=== PATIENT | male | born 1980 ===

== ENCOUNTER 2017-12-13 15:28 | Observation (INO) | payer OTHER ==
[2017-12-13 16:25] LABS: BASO % 0.9 % (0.0-2.0); EOS # 0.1 K/uL (0.0-0.7); EOS % 3.5 % (0.0-4.0); HEMOGLOBIN 13.1 g/dL (12.0-18.0); LYMPH # 0.9 K/uL (1.0-4.3); LYMPH % 20.8 % (20.0-40.0); MEAN CELL VOLUME 95.3 fL (80.0-94.0); MEAN CORPUSCULAR HEMOGLOBIN 31.3 pg (27.0-31.0); MEAN CORPUSCULAR HGB CONC 32.8 g/dL (33.0-37.0); MEAN PLATELET VOLUME 9.6 fL (7.2-11.7); MONO # 0.3 K/uL (0.0-0.8); MONO % 7.1 % (0.0-10.0); NEUT # 2.8 K/uL (1.8-7.0); NEUT % 67.7 % (50.0-75.0); RBC 4.18 Mil/uL (4.40-5.90); RED CELL DISTRIBUTION WIDTH 14.3 % (11.5-14.5); WHITE BLOOD COUNT 4.2 K/uL (4.8-10.8)
[2017-12-13 16:44] LABS: INR 1.1; PROTHROMBIN TIME 12.4 SECONDS (9.7-12.2)
--- NOTE | 2017-12-13 16:45 | C.PDOC ---
History Of Present Illness 37 y/o male, w/PMhx of renal failure, presents to the ER complaining of SOB and lethargy. Patient states that he has dialysis on Tuesdays and Fridays in [facility]. Patient reports that [place], he us [place] 1[place]2 weeks. Denies having CP, fever, chills, nausea, and vomiting. Time Seen by Provider: 12/13/17 15:55 Chief Complaint (Nursing): Shortness Of Breath History Per: Patient History/Exam Limitations: no limitations Onset/Duration Of Symptoms: Days Current Symptoms Are (Timing): Still Present Severity: Moderate Past Medical History Reviewed: Historical Data, Nursing Documentation, Vital Signs Vital Signs: Last Vital Signs Temp 97.2 F L 12/13/17 15:45 Pulse 51 L 12/13/17 16:10 Resp 16 12/13/17 16:10 BP 127/74 12/13/17 16:10 Pulse Ox 99 12/13/17 16:10 - Medical History PMH: HTN - Social History Hx Alcohol Use: No Hx Substance Use: No - Immunization History Hx Tetanus Toxoid Vaccination: No Hx Influenza Vaccination: No Hx Pneumococcal Vaccination: No Review Of Systems Except As Marked, All Systems Reviewed And Found Negative. Constitutional: Positive for: Other (lethargy). Negative for: Fever, Chills Cardiovascular: Negative for: Chest Pain Respiratory: Positive for: Shortness of Breath Gastrointestinal: Negative for: Nausea, Vomiting Physical Exam - Physical Exam Appears: Chronically Ill, Other Skin: Warm, Dry, Other (pallid) Head: Atraumatic, Normacephalic Eye(s): bilateral: Normal Inspection Nose: Normal Oral Mucosa: Moist Neck: Supple, Other (no JVD) Chest: Symmetrical Cardiovascular: Rhythm Regular Respiratory: Normal Breath Sounds, No Rales, No Rhonchi, No Wheezing Gastrointestinal/Abdominal: Normal Exam, Soft, No Tenderness, No Guarding, No Rebound Extremity: Normal ROM, Other (AV Fistula to left arm, no pitting edema) Neurological/Psych: Oriented x3, Normal Speech ED Course And Treatment - Laboratory Results Result Diagrams: 12/13/17 16:22 12/13/17 16:22 Lab Interpretation: Abnormal (c/w ESRD on HD, requiring HD) ECG: Interpreted By Me, Viewed By Me ECG Rhythm: Sinus Bradycardia ECG Interpretation: Abnormal (+ peaked T^'s) Interpretation Of ECG: Sinus Bradycardia with peaked T waves Rate From EC O2 Sat by Pulse Oximetry: 99 (RA) Pulse Ox Interpretation: Normal - Radiology CXR: Interpreted by Me CXR Interpretation: Yes: No Acute Disease Reevaluation Time: 17:12 Reassessment Condition: Unchanged - Physician Consult Information Outcome Of Conversation: and 1709: d/w Dr. 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 1709: d/w Dr. Ingram- Hospitalist covering Self Pay pt's today, ok to admit. Medical Decision Making Medical Decision Making: Plan: --Labs --ECG --CXR 1714: ESRD on HD, usually T/Tue, visiting from [facility] until 12/19, requires STAT HD today for elev K+ 7.5 and peaked T^'s on EKG, lethargy Defer agressive potassium "lowering" treatments in ED as best tx will be STAT HD and pt stable for a few hrs, myocardium temporally stabilized by Calcium Gluconate tx only. Disposition Doctor Will See Patient In The: Hospital Counseled Patient/Family Regarding: Studies Performed, Diagnosis - Disposition Disposition: HOSPITALIZED Disposition Time: 17:15 Condition: GOOD Forms: [employer] (Kyrgyz) - Clinical Impression Clinical Impression: ESRD (end stage renal disease) on dialysis, Chronic hyperkalemia - Scribe Statement The provider has reviewed the documentation as recorded by the Maddison Tejada Provider Attestation: All medical record entries made by the Maddison were at my direction and p ersonally dictated by me. I have reviewed the chart and agree that the record accurately reflects my personal performance of the history, physical exam, medical decision making, and the department course for this patient. I have also personally directed, reviewed, and agree with the discharge instructions and disposition.
[2017-12-13 16:48] LABS: B-TYPE NATRIURETIC PEPTIDE 23400 pg/mL (0-450)
[2017-12-13 16:58] LABS: ALB/GLOB RATIO 1.8 (1.0-2.1); ALBUMIN 4.7 g/dL (3.5-5.0); ALT/SGPT 30 U/L (21-72); AST/SGOT 16 U/L (17-59); BLOOD UREA NITROGEN 100 mg/dL (9-20); CALCIUM 6.4 mg/dl (8.6-10.4); GFR NON-AFRICAN AMERICAN 3
[2017-12-13] MEDS ORDERED: Calcium Gluconate 4.65 MEQ in Dextrose 5% In Water 100 ML IV ONE (17:06)
[2017-12-13] MEDS ORDERED: Calcium Gluconate 4.65 mEq/10 ml Inj ONE (17:22)
--- NOTE | 2017-12-13 17:37 | RAD ---
HISTORY: SOB COMPARISON: None available. TECHNIQUE: Chest PA and lateral FINDINGS: LUNGS: Mild pulmonary venous congestion. No focal consolidation. Please note that chest x-ray has limited sensitivity for the detection of pulmonary masses. PLEURA: No significant pleural effusion identified. No definite pneumothorax . CARDIOVASCULAR: Marked cardiomegaly with CTR approximately 19.6/30 atherosclerotic calcifications of the aortic knob. OSSEOUS STRUCTURES: No acute osseous abnormality identified. VISUALIZED UPPER ABDOMEN: Unremarkable. OTHER FINDINGS: None. IMPRESSION: Marked cardiomegaly, unusual in a patient of this age. Recommend correlation with EKG/echocardiogram if warranted as well as production supervisor off shift consultation. Faint atherosclerotic calcification of the aortic knob. Mild pulmonary venous congestion.
[2017-12-13 20:51] LABS: BLOOD UREA NITROGEN 79 mg/dL (9-20); CALCIUM 6.7 mg/dl (8.6-10.4); GFR NON-AFRICAN AMERICAN 5
--- NOTE | 2017-12-13 20:56 | CP.PCM.HP ---
History of Present Illness - History of Present Illness History of Present Illness: 37 year old male w/ pmhx of ESRD 2/2 HTN presents to ED w/ complaints of weakness, fatigue, and nausea for several days. Pt attributes this to his having missed his dialysis scheduled for today. Pt is here visiting from [facility] and planned to miss one of his t/f sessions as he has done before, but became symptomatic this time. Pt was diagnosed w/ ESRD resulting from uncontrolled HTN approx 10 yrs ago. Pt denies chest pain, SOB, vomiting, diarrhea. PMHx: ESRD, HTN PSHx: AVF, Meds:amlodipine, losartan, terazosin Allergies: NKDA SOcHx: denies Present on Admission - Present on Admission Any Indicators Present on Admission: No Review of Systems - Constitutional Constitutional: Fatigue, Weakness - EENT Eyes: absent: Change in Vision Nose/Mouth/Throat: absent: Nasal Congestion - Cardiovascular Cardiovascular: absent: Chest Pain, Dyspnea, Palpitations - Respiratory Respiratory: absent: Chest Congestion - Gastrointestinal Gastrointestinal: Nausea. absent: Abdominal Pain Past Patient History - Past Social History Smoking Status: Never Smoked - CARDIAC Hx Hypertension: Yes - RENAL Hx Renal Failure: Yes - PSYCHIATRIC Hx Substance Use: No - SURGICAL HISTORY Other/Comment: Peritoneal catheter - ANESTHESIA Hx Anesthesia: No Meds Allergies/Adverse Reactions: Allergies Allergy/AdvReac Type Severity Reaction Status Date / Time No Known Allergies Allergy Verified 12/13/17 15:50 Physical Exam - Constitutional Appears: Non-toxic, No Acute Distress - Head Exam Head Exam: ATRAUMATIC, NORMAL INSPECTION, NORMOCEPHALIC - Eye Exam Eye Exam: EOMI, Normal appearance - ENT Exam ENT Exam: Mucous Membranes Moist, Normal Exam - Neck Exam Neck exam: Positive for: Normal Inspection - Respiratory Exam Respiratory Exam: Clear to Auscultation Bilateral, NORMAL BREATHING PATTERN. absent: Rales - Cardiovascular Exam Cardiovascular Exam: Bradycardia, REGULAR RHYTHM, +S1, +S2 - GI/Abdominal Exam GI & Abdominal Exam: Normal Bowel Sounds, Soft. absent: Tenderness - Extremities Exam Extremities exam: Positive for: normal inspection. Negative for: pedal edema - Neurological Exam Neurological exam: Alert, Oriented x3 - Psychiatric Exam Psychiatric exam: Normal Affect, Normal Mood - Skin Skin Exam: Dry, Intact, Normal Color, Warm Results - Vital Signs Recent Vital Signs: Last Vital Signs Temp 97.5 F L 12/13/17 18:20 Pulse 50 L 12/13/17 18:20 Resp 20 12/13/17 18:20 BP 137/78 12/13/17 18:20 Pulse Ox 97 12/13/17 18:20 - Labs Result Diagrams: 12/13/17 16:22 12/13/17 20:32 Labs: Laboratory Results - last 24 hr 12/13/17 12/13/17 12/13/17 16:22 16:22 16:22 WBC 4.2 L RBC 4.18 L Hgb 13.1 Hct 39.9 MCV 95.3 H MCH 31.3 H MCHC 32.8 L RDW 14.3 Plt Count 134 MPV 9.6 Neut % (Auto) 67.7 Lymph % (Auto) 20.8 [place] % (Auto) 7.1 Eos % (Auto) 3.5 Baso % (Auto) 0.9 Neut # (Auto) 2.8 Lymph # (Auto) 0.9 L [place] # (Auto) 0.3 Eos # (Auto) 0.1 Baso # (Auto) 0.0 PT 12.4 H INR 1.1 APTT 40 H Sodium 142 Potassium 7.5 H* Chloride 103 Carbon Dioxide 14 L Anion Gap 32 H BUN 100 H* Creatinine 17.3 H* Est GFR ( Amer) 4 Est GFR (Non-Af Amer) 3 Random Glucose 101 Calcium 6.4 L Total Bilirubin 0.6 AST 16 L ALT 30 Alkaline Phosphatase 260 H Troponin I < 0.0120 NT-Pro-B Natriuret Pep 93033 H Total Protein 7.3 Albumin 4.7 Globulin 2.6 Albumin/Globulin Ratio 1.8 Assessment & Plan - Assessment and Plan (Free Text) Assessment: 37 yo male w/ ESRD admitted for emergent dialysis Fluid overload requiring emergent dialysis -given tonight -hyperkalemia 7.5, f/u am bmp -renal diet Hyperkalemia -K 7.5 on admission -K s/p HD 6.4 -kayexalate 30mg given -f/u am k HTN -stable, hold home meds at this time. Dispo: d/c when K reponds to kayexalate, pt asymptomatic
[2017-12-13] MEDS ORDERED: Sod Polystyrene Sulf 15 gm/60 ml Susp PO STA (21:04)
[2017-12-13 21:19] LABS: HEPATITIS B SURFACE AG Negative (NEGATIVE)
[2017-12-13 23:00] LABS: CALCIUM 7.2 mg/dl (8.6-10.4)
[2017-12-14 02:37] VITALS: RESP 20
[2017-12-14 08:23] LABS: BASO % 1.1 % (0.0-2.0); EOS # 0.2 K/uL (0.0-0.7); EOS % 5.2 % (0.0-4.0); HEMOGLOBIN 13.7 g/dL (12.0-18.0); LYMPH # 0.8 K/uL (1.0-4.3); LYMPH % 22.2 % (20.0-40.0); MEAN CORPUSCULAR HEMOGLOBIN 30.7 pg (27.0-31.0); MONO # 0.3 K/uL (0.0-0.8); MONO % 6.9 % (0.0-10.0); NEUT # 2.4 K/uL (1.8-7.0); NEUT % 64.6 % (50.0-75.0); RBC 4.44 Mil/uL (4.40-5.90); RED CELL DISTRIBUTION WIDTH 14.7 % (11.5-14.5); WHITE BLOOD COUNT 3.7 K/uL (4.8-10.8)
[2017-12-14 08:30] LABS: MEAN CELL VOLUME 93.3 fL (80.0-94.0)
[2017-12-14 08:58] LABS: CALCIUM 6.3 mg/dl (8.6-10.4)
[2017-12-14] MEDS ORDERED: Sod Polystyrene Sulf 15 gm/60 ml Susp PO ONE (11:30)
--- NOTE | 2017-12-14 13:16 | CARD ---
APPROVED REPORT Date of service: 12/13/2017 EKG Measurement Heart [id number] <Conclusion> Sinus bradycardia with 1st degree AV block Left axis deviation Moderate voltage criteria for LVH, may be normal variant Nonspecific T wave abnormality Prolonged QT Abnormal ECG
--- NOTE | 2017-12-14 13:55 | CP.PCM.CON ---
History of Present Illness - History of Present Illness History of Present Illness: 37 year old male w/ pmhx of ESRD 2/2 HTN presents to ED w/ complaints of weakness, fatigue, and nausea for several days. Pt attributes this to his having missed his dialysis scheduled for today. Pt is here visiting from [facility] and planned to miss one of his t/f sessions as he has done before, but became symptomatic this time. Pt was diagnosed w/ ESRD resulting from uncontrolled HTN approx 10 yrs ago. Pt denies chest pain, SOB, vomiting, diarrhea. PMHx: ESRD, HTN PSHx: AVF, Meds:amlodipine, losartan, terazosin Allergies: NKDA SOcHx: denies s/p emergent dialysis 12/13 for hyperkalemia await placement plans Review of Systems - Review of Systems Systems not reviewed;Unavailable: Language Barrier Past Patient History - Past Medical History & Family History Past Family History: Reviewed and not pertinent - Past Social History Smoking Status: Never Smoked Chewing Tobacco Use: No Cigar Use: No Alcohol: None Drugs: Denies - CARDIAC Hx Hypertension: Yes - RENAL Hx Renal Failure: Yes - PSYCHIATRIC Hx Substance Use: No - SURGICAL HISTORY Other/Comment: Peritoneal catheter - ANESTHESIA Hx Anesthesia: No Meds Allergies/Adverse Reactions: Allergies Allergy/AdvReac Type Severity Reaction Status Date / Time No Known Allergies Allergy Verified 12/13/17 15:50 - Medications Medications: Current Medications Amlodipine Besylate (Norvasc) 10 mg PO DAILY [facility] Last Admin: 12/14/17 10:59 Dose: 10 mg Losartan Potassium (Cozaar) 25 mg PO BID [facility] Last Admin: 12/14/17 10:59 Dose: 25 mg Physical Exam - Constitutional Appears: No Acute Distress, Chronically Ill - Head Exam Head Exam: ATRAUMATIC, NORMAL INSPECTION - Eye Exam Eye Exam: EOMI, Normal appearance - Neck Exam Neck exam: Positive for: Normal Inspection. Negative for: Tenderness - Respiratory Exam Respiratory Exam: Clear to Auscultation Bilateral, NORMAL BREATHING PATTERN - Cardiovascular Exam Cardiovascular Exam: REGULAR RHYTHM, +S1 - GI/Abdominal Exam GI & Abdominal Exam: Soft. absent: Tenderness - Extremities Exam Extremities exam: Positive for: normal inspection. Negative for: tenderness - Neurological Exam Neurological exam: Alert, CN II-XII Intact - Skin Skin Exam: Dry, Warm Results - Vital Signs Recent Vital Signs: Last Vital Signs Temp 98.0 F 12/14/17 07:00 Pulse 66 12/14/17 12:02 Resp 20 12/14/17 07:00 BP 157/94 H 12/14/17 07:00 Pulse Ox 98 12/14/17 12:02 - Labs Result Diagrams: 12/14/17 08:14 12/14/17 08:14 Labs: Laboratory Results - last 24 hr 12/13/17 12/13/17 12/13/17 16:22 16:22 16:22 WBC 4.2 L RBC 4.18 L Hgb 13.1 Hct 39.9 MCV 95.3 H MCH 31.3 H MCHC 32.8 L RDW 14.3 Plt Count 134 MPV 9.6 Neut % (Auto) 67.7 Lymph % (Auto) 20.8 Clark % (Auto) 7.1 Eos % (Auto) 3.5 Baso % (Auto) 0.9 Neut # (Auto) 2.8 Lymph # (Auto) 0.9 L Clark # (Auto) 0.3 Eos # (Auto) 0.1 Baso # (Auto) 0.0 PT 12.4 H INR 1.1 APTT 40 H Sodium 142 Potassium 7.5 H* Chloride 103 Carbon Dioxide 14 L Anion Gap 32 H BUN 100 H* Creatinine 17.3 H* Est GFR ( Amer) 4 Est GFR (Non-Af Amer) 3 Random Glucose 101 Calcium 6.4 L Total Bilirubin 0.6 AST 16 L ALT 30 Alkaline Phosphatase 260 H Troponin I < 0.0120 NT-Pro-B Natriuret Pep 32199 H Total Protein 7.3 Albumin 4.7 Globulin 2.6 Albumin/Globulin Ratio 1.8 Hep Bs Antigen Hep Bs Antibody Hepatitis C Antibody 12/13/17 12/13/17 12/13/17 20:32 20:32 20:32 WBC RBC Hgb Hct MCV MCH MCHC RDW Plt Count MPV Neut % (Auto) Lymph % (Auto) Clark % (Auto) Eos % (Auto) Baso % (Auto) Neut # (Auto) Lymph # (Auto) Clark # (Auto) Eos # (Auto) Baso # (Auto) PT INR APTT Sodium 139 Potassium 6.4 H* Chloride 101 Carbon Dioxide 21 L Anion Gap 24 H BUN 79 H Creatinine 12.6 H* D Est GFR ( Amer) 5 Est GFR (Non-Af Amer) 5 Random Glucose 131 H Calcium 6.7 L Total Bilirubin AST ALT Alkaline Phosphatase Troponin I NT-Pro-B Natriuret Pep Total Protein Albumin Globulin Albumin/Globulin Ratio Hep Bs Antigen Negative Hep Bs Antibody Positive Hepatitis C Antibody Negative 12/13/17 12/14/17 12/14/17 22:43 08:14 08:14 WBC 3.7 L RBC 4.44 Hgb 13.7 Hct 41.5 MCV 93.3 D MCH 30.7 MCHC 33.0 RDW 14.7 H Plt Count 141 MPV 10.0 Neut % (Auto) 64.6 Lymph % (Auto) 22.2 Clark % (Auto) 6.9 Eos % (Auto) 5.2 H Baso % (Auto) 1.1 Neut # (Auto) 2.4 Lymph # (Auto) 0.8 L Clark # (Auto) 0.3 Eos # (Auto) 0.2 Baso # (Auto) 0.0 PT INR APTT Sodium 140 141 Potassium 4.0 5.1 Chloride 97 L 99 Carbon Dioxide 25 22 Anion Gap 23 H 26 H BUN 58 H 71 H Creatinine 10.4 H* 12.7 H* D Est GFR ( Amer) 7 5 Est GFR (Non-Af Amer) 6 4 Random Glucose 85 85 Calcium 7.2 L 6.3 L Total Bilirubin AST ALT Alkaline Phosphatase Troponin I NT-Pro-B Natriuret Pep Total Protein Albumin Globulin Albumin/Globulin Ratio Hep Bs Antigen Hep Bs Antibody Hepatitis C Antibody Assessment & Plan (1) Hyperkalemia Status: Acute (2) Hypertensive chronic kidney disease with stage 5 chronic kidney disease or end stage renal disease Status: Acute (3) ESRD (end stage renal disease) on dialysis Status: Acute - Assessment and Plan (Free Text) Plan: repeat dialysis TTS stop ARB due to hyperkalemia add clonidine will need placement unless going home to country
[2017-12-14 15:51] VITALS: BP 164/84; TEMP 97.9
[2017-12-14 17:02] VITALS: PULSE 70; O2SAT 99
--- NOTE | 2017-12-14 17:41 | CP.PCM.DIS ---
Provider - Provider Date of Admission: 12/13/17 17:08 Attending physician: Ang Ingram MD Time Spent in preparation of Discharge (in minutes): 120 Diagnosis - Discharge Diagnosis (1) ESRD (end stage renal disease) on dialysis Status: Acute (2) Hyperkalemia Status: Acute Hospital Course - Lab Results Lab Results: Most Recent Lab Values WBC 3.7 K/uL (4.8-10.8) L 12/14/17 08:14 RBC 4.44 Mil/uL (4.40-5.90) 12/14/17 08:14 Hgb 13.7 g/dL (12.0-18.0) 12/14/17 08:14 Hct 41.5 % (35.0-51.0) 12/14/17 08:14 MCV 93.3 fL (80.0-94.0) D 12/14/17 08:14 MCH 30.7 pg (27.0-31.0) 12/14/17 08:14 MCHC 33.0 g/dL (33.0-37.0) 12/14/17 08:14 RDW 14.7 % (11.5-14.5) H 12/14/17 08:14 Plt Count 141 K/uL (130-400) 12/14/17 08:14 MPV 10.0 fL (7.2-11.7) 12/14/17 08:14 Neut % (Auto) 64.6 % (50.0-75.0) 12/14/17 08:14 Lymph % (Auto) 22.2 % (20.0-40.0) 12/14/17 08:14 [place] % (Auto) 6.9 % (0.0-10.0) 12/14/17 08:14 Eos % (Auto) 5.2 % (0.0-4.0) H 12/14/17 08:14 Baso % (Auto) 1.1 % (0.0-2.0) 12/14/17 08:14 Neut # (Auto) 2.4 K/uL (1.8-7.0) 12/14/17 08:14 Lymph # (Auto) 0.8 K/uL (1.0-4.3) L 12/14/17 08:14 [place] # (Auto) 0.3 K/uL (0.0-0.8) 12/14/17 08:14 Eos # (Auto) 0.2 K/uL (0.0-0.7) 12/14/17 08:14 Baso # (Auto) 0.0 K/uL (0.0-0.2) 12/14/17 08:14 PT 12.4 SECONDS (9.7-12.2) H 12/13/17 16:22 INR 1.1 12/13/17 16:22 APTT 40 SECONDS (21-34) H 12/13/17 16:22 Sodium 141 mmol/L (132-148) 12/14/17 08:14 Potassium 5.1 mmol/L (3.6-5.2) 12/14/17 08:14 Chloride 99 mmol/L (98-107) 12/14/17 08:14 Carbon Dioxide 22 mmol/L (22-30) 12/14/17 08:14 Anion Gap 26 (10-20) H 12/14/17 08:14 BUN 71 mg/dL (9-20) H 12/14/17 08:14 Creatinine 12.7 mg/dL (0.8-1.5) H* D 12/14/17 08:14 Est GFR ( Amer) 5 12/14/17 08:14 Est GFR (Non-Af Amer) 4 12/14/17 08:14 Random Glucose 85 mg/dL (75-110) 12/14/17 08:14 Calcium 6.3 mg/dl (8.6-10.4) L 12/14/17 08:14 Total Bilirubin 0.6 mg/dL (0.2-1.3) 12/13/17 16:22 AST 16 U/L (17-59) L 12/13/17 16:22 ALT 30 U/L (21-72) 12/13/17 16:22 Alkaline Phosphatase 260 U/L (38-126) H 12/13/17 16:22 Troponin I < 0.0120 ng/mL (0.00-0.120) 12/13/17 16:22 NT-Pro-B Natriuret Pep 42408 pg/mL (0-450) H 12/13/17 16:22 Total Protein 7.3 g/dL (6.3-8.3) 12/13/17 16:22 Albumin 4.7 g/dL (3.5-5.0) 12/13/17 16:22 Globulin 2.6 gm/dL (2.2-3.9) 12/13/17 16:22 Albumin/Globulin Ratio 1.8 (1.0-2.1) 12/13/17 16:22 Hep Bs Antigen Negative (NEGATIVE) 12/13/17 20:32 Hep Bs Antibody Positive (NEGATIVE) 12/13/17 20:32 Hepatitis C Antibody Negative (NEGATIVE) 12/13/17 20:32 - Hospital Course Hospital Course: On admission: 37 year old male w/ pmhx of ESRD 2/2 HTN presents to ED w/ complaints of weakness, fatigue, and nausea for several days. Pt attributes this to having missed his dialysis scheduled for today. Pt is here visiting from [facility] and planned to miss one of his t/f sessions as he has done before, but became symptomatic this time. Pt was diagnosed w/ ESRD resulting from uncontrolled HTN approx 10 yrs ago. Pt denies chest pain, SOB, vomiting, diarrhea. Patient reports past medical history of ESRD, HTN. Past surgical history includes AV fistula placement. Patient takes amlodipine, losartan and terazosin at home. Reports no known drug allergies and denies any past social history including smoking, tobacco or illicit drug use. On hospitalization: Patient was admitted for emergent dialysis. CMP results from 12/13 was remarkable for potassium level of 7.5, BUN/Creatinine levels of 100/17.3. Patient was admitted under hospitalist service. Dr Ray was aware of case, agreed for patient to undergo stat Hemodialysis, which patient underwent. Kayexalate 30 mg given. BMP done after hemodialysis showed potassium level of 4.0, BUN level of 58 and creatinine level of 10.4. Patient was placed on renal diet. Repeat blood test on 12/14 shows potassium 5.1, BUN level of 71, creatinine 12.7. Patient admits to feeling better than yesterday on morning encounter. Kayexelate 15 mg was given[address] Nephrology Dr Ray was consulted, which he recommended for ARb medication to be discontinued due to hyperkalemia, to add clonidine and recommended placement for HD unless going home to [facility]. Patient reports that he will be returning to [facility] this coming Tuesday. Patient instructed to come back to ED if he would like hemodialysis on Tuesday. On discharge: The following instructions were given to the patient: Patient is to continue taking the following home medications: Amlodipine 10mg once a day. Terazosin 1mg twice a day. Patient is to discontinue taking the following medication. Losartan 25 mg twice a day. Patient is to avoid potassium rich foods such as bananas or coconut water. Patient is to continue hemodialysis in his home country when returning on tuesday. Please follow with your doctors there. If you have returning symptoms of weakness, fatigue, nausea or any other serious symptoms, please return to the ER. This is a short summary of Patient's hospitalization course. For more complete information, please refer to patient's EMR. - Date & Time of H&P Date of H&P: 12/13/17 Time of H&P: 20:45 Discharge Exam - Head Exam Head Exam: ATRAUMATIC, NORMAL INSPECTION, NORMOCEPHALIC - Eye Exam Eye Exam: EOMI, Normal appearance Pupil Exam: NORMAL ACCOMODATION - ENT Exam ENT Exam: Normal Exam - Neck Exam Neck exam: Full Rom, Normal Inspection - Respiratory Exam Respiratory Exam: Clear to PA & Lateral, NORMAL BREATHING PATTERN, UNREMARKABLE. absent: Accessory Muscle Use, Rales, Rhonchi, Wheezes, Respiratory Distress - Cardiovascular Exam Cardiovascular Exam: REGULAR RHYTHM, +S1, +S2 - GI/Abdominal Exam GI & Abdominal Exam: Normal Bowel Sounds, Soft. absent: Tenderness - Extremities Exam Extremities exam: full ROM, normal inspection Additional comments: AV fistula on left anterior arm - Back Exam Back exam: NORMAL INSPECTION - Neurological Exam Neurological exam: Alert, Normal Gait, Oriented x3 - Psychiatric Exam Psychiatric exam: Normal Affect, Normal Mood - Skin Skin Exam: Dry, Intact, Normal Color, Warm Discharge Plan - Follow Up Plan Condition: GOOD Disposition: HOME/ ROUTINE Instructions: End Stage Kidney Disease (DC), Dialysis and Diet, Hyperkalemia (DC), Renal Failure Diet (DC), Hyperkalemia (GEN) Additional Instructions: Patient is to continue taking the following home medications: - Amlodipine 10mg once a day - Terazosin 1mg twice a day Patient is to discontinue taking the following medication -Losartan 25 mg twice a day Patient is to avoid potassium rich foods such as bananas or coconut water Patient is to continue hemodialysis in his home country when returning on tuesday. Please follow with your doctors there. If you have returning symptoms of weakness, fatigue, nausea or any other serious symptoms, please return to the ER. El paciente debe continuar tomando los siguientes medicamentos caseros: - Amlodipina 10 mg rehana vez al da. - Terazosina 1mg dos veces al da. El paciente debe dejar de kadie el siguiente medicamento. -Losartn 25 mg dos veces al da. El paciente debe evitar los alimentos ricos en potasio, florinda los pltanos o el agua de tim. El paciente debe continuar la hemodilisis en [place] pas de origen cuando regrese el lunes. Por favor, siga con jose d mdicos all. Si tiene sntomas de debilidad, fatiga, nuseas o cualquier otro sntoma grave, regrese a la carmen de emergencias.
== END 2017-12-14 17:42 | disposition home or self-care (01) ==
LOC: C.ER 15:28 → C.9E 17:08 → C.5S 17:53
PROVIDERS: ADMIT Internal Medicine; ATTEND Internal Medicine
DX: I12.0 Hypertensive chronic kidney disease with stage 5 chronic kidney disease or end stage renal disease (principal); E87.5 Hyperkalemia; R53.83 Other fatigue; R11.0 Nausea
CPT/HCPCS: 36415; 71046; 80048; 80053; 83880; 84484; 85025; 85610; 85730; 86706; 86803; 87340; 93005; 99285; G0257; G0378

== ENCOUNTER 2017-12-17 08:20 | Emergency (ER) | payer OTHER ==
[2017-12-17 09:20] LABS: BASO % 0.9 % (0.0-2.0); EOS # 0.2 K/uL (0.0-0.7); HEMOGLOBIN 13.1 g/dL (12.0-18.0); LYMPH # 0.8 K/uL (1.0-4.3); LYMPH % 21.6 % (20.0-40.0); MEAN CELL VOLUME 94.6 fL (80.0-94.0); MEAN CORPUSCULAR HGB CONC 32.7 g/dL (33.0-37.0); MEAN PLATELET VOLUME 10.3 fL (7.2-11.7); MONO # 0.3 K/uL (0.0-0.8); MONO % 8.9 % (0.0-10.0); NEUT # 2.4 K/uL (1.8-7.0); NEUT % 63.6 % (50.0-75.0); RBC 4.22 Mil/uL (4.40-5.90); RED CELL DISTRIBUTION WIDTH 14.8 % (11.5-14.5); WHITE BLOOD COUNT 3.7 K/uL (4.8-10.8)
[2017-12-17 09:56] LABS: ALB/GLOB RATIO 1.8 (1.0-2.1); CALCIUM 5.7 mg/dl (8.6-10.4)
--- NOTE | 2017-12-17 10:04 | C.PDOC ---
History Of Present Illness 37 years old male with PMHx of HTN, ESRD (on dialysis Tuesday and Tuesday) presents to ED for complaints of needing Dialysis. Patient states he lives in [facility] and is here on vacation for 2 weeks. Denies any other physical compla ints. Patient was last at [facility] on December 13 for Dialysis. Patient also reports he returns to [facility] on December 19. PMD: not in the [place] Time Seen by Provider: 12/17/17 08:44 Chief Complaint (Nursing): Male Genitourinary History Per: Patient History/Exam Limitations: no limitations Onset/Duration Of Symptoms: Hrs Current Symptoms Are (Timing): Still Present Alleviating Factors: None Recent travel outside of the [place]: Yes Past Medical History Reviewed: Historical Data, Nursing Documentation, Vital Signs Vital Signs: Last Vital Signs Temp 97.7 F 12/17/17 08:35 Pulse 62 12/17/17 08:35 Resp 20 12/17/17 08:35 BP 135/75 12/17/17 08:35 Pulse Ox 99 12/17/17 08:35 - Medical History PMH: HTN, End Stage Renal Disease (On Dialysis Tuesdays and Fridays) Family History: States: No Known Family Hx - Social History Hx Tobacco Use: No Hx Alcohol Use: No Hx Substance Use: No - Immunization History Hx Tetanus Toxoid Vaccination: No Hx Influenza Vaccination: No Hx Pneumococcal Vaccination: No Review Of Systems Except As Marked, All Systems Reviewed And Found Negative. Constitutional: Negative for: Fever, Chills Cardiovascular: Negative for: Chest Pain Respiratory: Negative for: Shortness of Breath Gastrointestinal: Negative for: Nausea, Vomiting, Abdominal Pain, Diarrhea Skin: Negative for: Rash Neurological: Negative for: Weakness, Numbness Physical Exam - Physical Exam Appears: Well, Non-toxic, No Acute Distress Skin: Normal Color, Warm, Dry, No Rash Head: Atraumatic Eye(s): bilateral: Normal Inspection, EOMI Ear(s): Bilateral: Normal Nose: Normal Oral Mucosa: Moist Tongue: Normal Appearing Lips: Normal Appearing Teeth: Normal Dentition Throat: Normal Neck: Normal, Normal ROM, Supple Chest: Symmetrical, No Deformity Cardiovascular: Rhythm Regular, No Murmur Respiratory: Normal Breath Sounds, No Decreased Breath Sounds, No Rales, No Rhonchi, No Wheezing Gastrointestinal/Abdominal: Normal Exam, Bowel Sounds, Soft, No Tenderness Rectal: Deferred Back: Normal Inspection Extremity: Normal ROM, No Deformity, Other ((+) bruit in AV graft) Extremity: Bilateral: Atraumatic, Normal Color And Temperature Pulses: Left Radial: Normal, Right Radial: Normal Neurological/Psych: Oriented x3, Normal Speech, Other (No focal deficits ) Gait: Steady ED Course And Treatment - Laboratory Results Result Diagrams: 12/17/17 09:17 12/17/17 09:17 O2 Sat by Pulse Oximetry: 99 (RA) Pulse Ox Interpretation: Normal Progress Note: Spoke to Dr. Faisal Machado and will order dialysis for patient. Also endorsed admission to Dr. Wes Arreaga. Medical Decision Making Medical Decision Making: Initial Impression: * ESRD Initial Plan: * EKG--(+) hyperacute T waves indicative of high potassium * Blood work * Dialysis--I spoke to Dr. Magnus Machado and he will write for HD orders Disposition - Disposition Disposition: HOSPITALIZED Disposition Time: 10:00 Condition: STABLE - Clinical Impression Clinical Impression: ESRD (end stage renal disease) on dialysis, Hyperkalemia - Scribe Statement The provider has reviewed the documentation as recorded by the Scribe Ann Choi All medical record entries made by the Scribe were at my direction and personally dictated by me. I have reviewed the chart and agree that the record accurately reflects my personal performance of the history, physical exam, medical decision making, and the department course for this patient. I have also personally directed, reviewed, and agree with the discharge instructions and disposition. Decision To Admit - Pt Status Changed To: Hospital Disposition Of: Observation - . Bed Request Type: Regular Admitting Physician: Wes Arreaga Patient Diagnosis: ESRD (end stage renal disease) on dialysis, Hyperkalemia
--- NOTE | 2017-12-17 10:38 | CP.PCM.CON ---
History of Present Illness - History of Present Illness History of Present Illness: RENAL CONSULT HPI: 37 year old male w/ pmhx of ESRD 2/2 HTN presente to ER for dialysis. He is travelling from [facility] - gets HD 2/xweek. He was here earlier this week for dialysis. He otherwise has no complaints. He denies n/v/fever/chils/cp/sob. ros: a full detailed ros is negative except as in my hpi PMHx: ESRD, HTN PSHx: AVF, Meds:amlodipine, losartan, terazosin Allergies: NKDA SOcHx: denies pe: vs as below gen: nad sclera: aniceri op: clear neck: supple cv: +s1+s2 lungs: cta abd: soft no organomegaly ext: no edema neuro: a+ox3 psych: nml affect skin no rash imp: esrd /hyperkalemia/ hypertensive kidney disease/ anemia of renal plan: hd k should resolve resume david bp meds hgb - no need for gasper Past Patient History - Past Social History Smoking Status: Never Smoked - CARDIAC Hx Hypertension: Yes - RENAL Date of Last Dialysis Treatment: 12/13/17 Hx Renal Failure: Yes - PSYCHIATRIC Hx Substance Use: No - SURGICAL HISTORY Hx Surgeries: Yes Other/Comment: Peritoneal catheter, dialysis shunt left arm - ANESTHESIA Hx Anesthesia: Yes Hx Anesthesia Reactions: No Meds Allergies/Adverse Reactions: Allergies Allergy/AdvReac Type Severity Reaction Status Date / Time No Known Allergies Allergy Verified 12/13/17 15:50 Results - Vital Signs Recent Vital Signs: Last Vital Signs Temp 97.7 F 12/17/17 08:35 Pulse 62 12/17/17 08:35 Resp 20 12/17/17 08:35 BP 135/75 12/17/17 08:35 Pulse Ox 99 12/17/17 10:04 - Labs Result Diagrams: 12/17/17 09:17 12/17/17 09:17 Labs: Laboratory Results - last 24 hr 12/17/17 12/17/17 09:17 09:17 WBC 3.7 L RBC 4.22 L Hgb 13.1 Hct 39.9 MCV 94.6 H MCH 31.0 MCHC 32.7 L RDW 14.8 H Plt Count 117 L D MPV 10.3 Neut % (Auto) 63.6 Lymph % (Auto) 21.6 [place] % (Auto) 8.9 Eos % (Auto) 5.0 H Baso % (Auto) 0.9 Neut # (Auto) 2.4 Lymph # (Auto) 0.8 L [place] # (Auto) 0.3 Eos # (Auto) 0.2 Baso # (Auto) 0.0 Differential Comment Sodium 144 Potassium 6.1 H Chloride 100 Carbon Dioxide 17 L Anion Gap 33 H BUN 113 H* D Creatinine 19.0 H* D Est GFR ( Amer) 3 Est GFR (Non-Af Amer) 3 Random Glucose 101 Calcium 5.7 L* Total Bilirubin 0.5 AST 20 ALT 28 Alkaline Phosphatase 243 H Total Protein 7.9 Albumin 5.0 Globulin 2.8 Albumin/Globulin Ratio 1.8
--- NOTE | 2017-12-17 12:30 | CP.PCM.HP ---
History of Present Illness - History of Present Illness History of Present Illness: PGY-1 H&P for Dr Wes Arreaga CC: seeking hemodialysis HPI: patient is a 37 yo male with pmhx of ESRD and HTN came to the ER to receive one session of hemodialysis. Patient is originally from [facility] and he gets HD twice a week (tuesday and Tuesday). Patient is planning to return to his home country on Tuesday, where he will continue getting his dialysis treatment. Patient came to the hospital on 12/13 because he missed one dose and was feeling weak at the time. Patient was discharged the next day and was recommended to return to ER if he wanted a session of HD. Patient reports no complains at this time. Patient denies weakness, generalized aches, dizziness, chest pain, shortness of breath, nausea, vomiting, palpitations, diarrhea, constipation. PMHx: ESRD, HTN PSHx: AVF, Meds:amlodipine, losartan, terazosin Allergies: NKDA SOcHx: denies Present on Admission - Present on Admission Any Indicators Present on Admission: No Review of Systems - Review of Systems All systems: reviewed and no additional remarkable complaints except Review of Systems: as mentioned in HPI Past Patient History - Past Social History Smoking Status: Never Smoked - CARDIAC Hx Hypertension: Yes - RENAL Date of Last Dialysis Treatment: 12/13/17 Hx Renal Failure: Yes - PSYCHIATRIC Hx Substance Use: No - SURGICAL HISTORY Hx Surgeries: Yes Other/Comment: Peritoneal catheter, dialysis shunt left arm - ANESTHESIA Hx Anesthesia: Yes Hx Anesthesia Reactions: No Meds Allergies/Adverse Reactions: Allergies Allergy/AdvReac Type Severity Reaction Status Date / Time No Known Allergies Allergy Verified 12/13/17 15:50 Physical Exam - Constitutional Appears: Well, Non-toxic, No Acute Distress - Head Exam Head Exam: ATRAUMATIC, NORMAL INSPECTION, NORMOCEPHALIC - Eye Exam Eye Exam: EOMI, Normal appearance - ENT Exam ENT Exam: Mucous Membranes Moist, Normal Exam - Neck Exam Neck exam: Positive for: Full Rom, Normal Inspection - Respiratory Exam Respiratory Exam: Clear to Auscultation Bilateral, NORMAL BREATHING PATTERN. absent: Accessory Muscle Use, Rales, Rhonchi, Wheezes, Respiratory Distress - Cardiovascular Exam Cardiovascular Exam: REGULAR RHYTHM, +S1, +S2. absent: Tachycardia, Clicks, Gallop, Systolic Murmur - GI/Abdominal Exam GI & Abdominal Exam: Normal Bowel Sounds, Soft. absent: Distended, Guarding, Rebound, Tenderness - Extremities Exam Extremities exam: Positive for: full ROM, normal inspection Additional comments: +1 pitting edema on bilateral lower extremities - Back Exam Back exam: NORMAL INSPECTION - Neurological Exam Neurological exam: Alert, Normal Gait, Oriented x3 - Psychiatric Exam Psychiatric exam: Normal Affect, Normal Mood - Skin Skin Exam: Dry, Intact, Normal Color, Warm Results - Vital Signs Recent Vital Signs: Last Vital Signs Temp 97.7 F 12/17/17 11:49 Pulse 54 L 12/17/17 11:49 Resp 16 12/17/17 11:49 BP 135/76 12/17/17 11:49 Pulse Ox 97 12/17/17 11:49 - Labs Result Diagrams: 12/17/17 09:17 12/17/17 09:17 Labs: Laboratory Results - last 24 hr 12/17/17 12/17/17 09:17 09:17 WBC 3.7 L RBC 4.22 L Hgb 13.1 Hct 39.9 MCV 94.6 H MCH 31.0 MCHC 32.7 L RDW 14.8 H Plt Count 117 L D MPV 10.3 Neut % (Auto) 63.6 Lymph % (Auto) 21.6 [place] % (Auto) 8.9 Eos % (Auto) 5.0 H Baso % (Auto) 0.9 Neut # (Auto) 2.4 Lymph # (Auto) 0.8 L [place] # (Auto) 0.3 Eos # (Auto) 0.2 Baso # (Auto) 0.0 Differential Comment Sodium 144 Potassium 6.1 H Chloride 100 Carbon Dioxide 17 L Anion Gap 33 H BUN 113 H* D Creatinine 19.0 H* D Est GFR ( Amer) 3 Est GFR (Non-Af Amer) 3 Random Glucose 101 Calcium 5.7 L* Total Bilirubin 0.5 AST 20 ALT 28 Alkaline Phosphatase 243 H Total Protein 7.9 Albumin 5.0 Globulin 2.8 Albumin/Globulin Ratio 1.8 Assessment & Plan - Assessment and Plan (Free Text) Assessment: 37 yo male with ESRD and HTN, with no complains, seeking one more treatment of hemodialysis before returning to his country to continue treatment. Plan: ESRD on HD - Patient to receive Hemodialysis this afternoon, seen by Dr Machado - EKG sinus bradycardia, Long QT intervals -BUN/Cr: 113/19.0 -Potassium 6.1 - renal diet - if not complains, patient to be discharged after dialysis today. Plan discussed with Dr Wes Black, PGY-1 - Date & Time Date: 12/17/17 Time: 12:31
[2017-12-17 19:03] VITALS: BP 160/84; PULSE 78; RESP 16; TEMP 97.8; O2SAT 99
--- NOTE | 2017-12-17 19:05 | CP.PCM.DIS ---
Provider - Provider Date of Admission: 12/17/17 10:03 Attending physician: Wes Arreaga DO Time Spent in preparation of Discharge (in minutes): 180 Diagnosis - Discharge Diagnosis (1) ESRD (end stage renal disease) on dialysis Status: Acute (2) Hyperkalemia Status: Acute Hospital Course - Lab Results Lab Results: Most Recent Lab Values WBC 3.7 K/uL (4.8-10.8) L 12/17/17 09:17 RBC 4.22 Mil/uL (4.40-5.90) L 12/17/17 09:17 Hgb 13.1 g/dL (12.0-18.0) 12/17/17 09:17 Hct 39.9 % (35.0-51.0) 12/17/17 09:17 MCV 94.6 fL (80.0-94.0) H 12/17/17 09:17 MCH 31.0 pg (27.0-31.0) 12/17/17 09:17 MCHC 32.7 g/dL (33.0-37.0) L 12/17/17 09:17 RDW 14.8 % (11.5-14.5) H 12/17/17 09:17 Plt Count 117 K/uL (130-400) L D 12/17/17 09:17 MPV 10.3 fL (7.2-11.7) 12/17/17 09:17 Neut % (Auto) 63.6 % (50.0-75.0) 12/17/17 09:17 Lymph % (Auto) 21.6 % (20.0-40.0) 12/17/17 09:17 [place] % (Auto) 8.9 % (0.0-10.0) 12/17/17 09:17 Eos % (Auto) 5.0 % (0.0-4.0) H 12/17/17 09:17 Baso % (Auto) 0.9 % (0.0-2.0) 12/17/17 09:17 Neut # (Auto) 2.4 K/uL (1.8-7.0) 12/17/17 09:17 Lymph # (Auto) 0.8 K/uL (1.0-4.3) L 12/17/17 09:17 [place] # (Auto) 0.3 K/uL (0.0-0.8) 12/17/17 09:17 Eos # (Auto) 0.2 K/uL (0.0-0.7) 12/17/17 09:17 Baso # (Auto) 0.0 K/uL (0.0-0.2) 12/17/17 09:17 Differential Comment 12/17/17 09:17 Sodium 144 mmol/L (132-148) 12/17/17 09:17 Potassium 6.1 mmol/L (3.6-5.2) H 12/17/17 09:17 Chloride 100 mmol/L (98-107) 12/17/17 09:17 Carbon Dioxide 17 mmol/L (22-30) L 12/17/17 09:17 Anion Gap 33 (10-20) H 12/17/17 09:17 BUN 113 mg/dL (9-20) H* D 12/17/17 09:17 Creatinine 19.0 mg/dL (0.8-1.5) H* D 12/17/17 09:17 Est GFR ( Amer) 3 12/17/17 09:17 Est GFR (Non-Af Amer) 3 12/17/17 09:17 Random Glucose 101 mg/dL (75-110) 12/17/17 09:17 Calcium 5.7 mg/dl (8.6-10.4) L* 12/17/17 09:17 Total Bilirubin 0.5 mg/dL (0.2-1.3) 12/17/17 09:17 AST 20 U/L (17-59) 12/17/17 09:17 ALT 28 U/L (21-72) 12/17/17 09:17 Alkaline Phosphatase 243 U/L (38-126) H 12/17/17 09:17 Total Protein 7.9 g/dL (6.3-8.3) 12/17/17 09:17 Albumin 5.0 g/dL (3.5-5.0) 12/17/17 09:17 Globulin 2.8 gm/dL (2.2-3.9) 12/17/17 09:17 Albumin/Globulin Ratio 1.8 (1.0-2.1) 12/17/17 09:17 - Hospital Course Hospital Course: patient is a 37 yo male with pmhx of ESRD and HTN came to the ER to receive one session of hemodialysis. Patient is originally from [facility], [place] and he gets HD twice a week (tuesday and Tuesday). Patient is planning to return to his home country on Tuesday, where he will continue getting his dialysis treatment. Patient came to the hospital on 12/13 because he missed one dose and was feeling weak at the time. Patient was discharged the next day and was recommended to return to ER if he wanted a session of HD. Patient reports no complains at this time. Patient denies weakness, generalized aches, dizziness, chest pain, shortness of breath, nausea, vomiting, palpitations, diarrhea, constipation. Patient was admitted to the hospital for patient to receive hemodialysis. Dr Machado, instrument and control service person was consulted which planned for patient to receive HD. Order for discharge was placed after patient completed HD session. On discharge, the patient was given the following instruction: Patient is to follow up with his primary doctor and kidney specialist in his home country of [facility]. Patient will be returning to his country this tuesday. Patient is to resume his home medication as indicated by his primary doctor. If symptoms associated with kidney failure appear and/or worsen, please return to the ER as soon as possible. This is a brief summary of patient's hospitalization course. For more information, please see patient's EMR. Discharge Exam - Head Exam Head Exam: ATRAUMATIC, NORMAL INSPECTION, NORMOCEPHALIC - Eye Exam Eye Exam: EOMI, Normal appearance - ENT Exam ENT Exam: Normal Exam - Neck Exam Neck exam: Full Rom, Normal Inspection - Respiratory Exam Respiratory Exam: Clear to PA & Lateral, NORMAL BREATHING PATTERN, UNREMARKABLE - Cardiovascular Exam Cardiovascular Exam: REGULAR RHYTHM, +S1, +S2 - GI/Abdominal Exam GI & Abdominal Exam: Normal Bowel Sounds, Unremarkable. absent: Distended, Tenderness - Extremities Exam Extremities exam: full ROM - Back Exam Back exam: NORMAL INSPECTION - Neurological Exam Neurological exam: Alert, Oriented x3 - Psychiatric Exam Psychiatric exam: Normal Affect, Normal Mood - Skin Skin Exam: Dry, Intact, Normal Color, Warm Discharge Plan - Follow Up Plan Condition: STABLE Disposition: HOME/ ROUTINE Instructions: Renal Failure Diet (DC) Additional Instructions: Patient is to follow up with his primary doctor and kidney specialist in his home country of [facility]. Patient will be returning to his country this tuesday. Patient is to resume his home medication as indicated by his primary doctor. If symptoms associated with kidney failure appear and/or worsen, please return to the ER as soon as possible. El paciente debe realizar un seguimiento con christianson mdico de mitzyra y un especialista en riones en christianson pas de origen, [place]. El paciente regresar a christianson pas raphael lun. Paciente puede continuar tomando jose d [facility] [place] esta indicado por christianson doctor de cabezera. Si aparecen y / o empeoran los sntomas asociados con la insuficiencia renal, regrese a la carmen de emergencia wilkes pronto [place] sea posible.
--- NOTE | 2017-12-19 21:05 | CARD ---
APPROVED REPORT Date of service: 12/17/2017 EKG Measurement Heart [id number] <Conclusion> Sinus bradycardia Possible Left atrial enlargement T wave abnormality, consider lateral ischemia Prolonged QT Abnormal ECG
== END 2017-12-17 19:26 | disposition home or self-care (01) ==
LOC: C.ER 08:20 → UNDOADMOB 10:03 → C.9E 10:03 → UNDODISOB 19:26 → C.ER 19:26 → C.3T 19:45 → C.9E 19:45 → C.3T 19:51
DX: I12.0 Hypertensive chronic kidney disease with stage 5 chronic kidney disease or end stage renal disease (principal); N18.6 End stage renal disease; Z99.2 Dependence on renal dialysis; E87.5 Hyperkalemia
CPT/HCPCS: 80053; 85025; 99285; G0257; G0378